=== PATIENT | female | born 1995 | race Caucasian/White ===

== ENCOUNTER 2017-09-28 19:31 | Emergency (ER) | payer SELFPAY ==
[~2017-09-28] VITALS: Ht 170.2 cm; Wt 59.0 kg
[2017-09-28 19:33] VITALS: BP 100/65
== END 2017-09-28 20:56 | disposition left against medical advice (07) ==
LOC: ER 19:31
DX: R55 Syncope and collapse (principal); Z53.21 Procedure and treatment not carried out due to patient leaving prior to being seen by health care provider